=== PATIENT | female | born 1960 | race Caucasian/White ===

== ENCOUNTER → 2016-07-28 | Outpatient (CLI) | payer MEDICARE | LOC: HEART CORB 07-21 12:58 | DX: R07.2 Precordial pain (principal); R55 Syncope and collapse ==

== ENCOUNTER → 2016-07-28 | Outpatient (CLI) | payer MEDICARE | LOC: HEART CORB 13:14 | DX: R07.2 Precordial pain (principal); R55 Syncope and collapse | CPT/HCPCS: 78452; 93306; A9502; J2785 ==